=== PATIENT | male | born 1945 | race Caucasian/White ===

== ENCOUNTER → 2021-02-02 14:06 | Outpatient (CLI) | payer MEDICARE ==
[2021-02-02 14:16] LABS: BASOPHILS 0.3 % (0-2); EOSINOPHILS 0.7 % (0-7); HEMATOCRIT 46.1 % (42.0-54.0); HEMOGLOBIN 14.6 g/dL (13.5-17.5); IMMATURE GRANULOCYTES 0.2 % (0-5); LYMPHOCYTE ABS# 0.88 10x3/uL (1.32-3.57); LYMPHOCYTES 10.2 % (15-50); MCH 28.9 pg (26.0-34.0); MCHC 31.7 g/dL (31.0-37.0); MCV 91.1 fL (80.0-100.0); MONOCYTES 10.7 % (2-11); NEUTROPHIL ABS# 6.69 10x3/uL (1.78-5.38); NEUTROPHILS 77.9 % (40-80); PLATELET COUNT 233 10x3/uL (130-400); RBC 5.06 10x6/uL (4.20-6.10); RDW 13.1 % (11.5-14.5); WBC 8.6 10x3/uL (4.8-10.8)
[2021-02-02 14:24] LABS: BILIRUBIN NEGATIVE (NEGATIVE); CALC OSMOLALITY 276 mosm/kg (275-300); CARBON DIOXIDE 30.8 mmol/L (21.0-32.0); CHLORIDE - SERUM 99 mmol/L (98-107); CREATININE - SERUM 0.9 mg/dL (0.6-1.3); GLUCOSE 92 mg/dL (74-106); KETONE NEGATIVE (NEGATIVE); NITRITE NEGATIVE (NEGATIVE); POTASSIUM - SERUM 4.5 mmol/L (3.5-5.1); SODIUM 138 mmol/L (136-145); UREA NITROGEN 16 mg/dL (7-18); UROBILINOGEN NORMAL mg/dL (< 2); WHITE CELLS - URINE 0-5 HPF (0-1); eGFR NON AFRICAN AMERICAN 87 mL/min (90-120)
[2021-02-02 14:25] LABS: AMORPHOUS SEDIMENT <1+ LPF (NONE SEEN); BACTERIA FEW HPF (NONE SEEN)
== END | disposition home or self-care (01) ==
LOC: D.LABREF 14:06
PROVIDERS: ATTEND Family Medicine
DX: N39.0 Urinary tract infection, site not specified (principal); J44.1 Chronic obstructive pulmonary disease with (acute) exacerbation

== ENCOUNTER → 2021-02-07 16:26 | Outpatient (CLI) | payer MEDICARE ==
[2021-02-07 16:43] LABS: BASOPHILS 0.1 % (0-2); EOSINOPHILS 0.2 % (0-7); HEMATOCRIT 47.3 % (42.0-54.0); HEMOGLOBIN 14.9 g/dL (13.5-17.5); IMMATURE GRANULOCYTES 0.7 % (0-5); LYMPHOCYTE ABS# 0.64 10x3/uL (1.32-3.57); LYMPHOCYTES 5.1 % (15-50); MCH 28.7 pg (26.0-34.0); MCHC 31.5 g/dL (31.0-37.0); MEAN PLATELET VOLUME 10.3 fL (7.4-10.4); MONOCYTES 4.2 % (2-11); NEUTROPHIL ABS# 11.27 10x3/uL (1.78-5.38); NEUTROPHILS 89.7 % (40-80); PLATELET COUNT 212 10x3/uL (130-400); RDW 13.7 % (11.5-14.5); WBC 12.6 10x3/uL (4.8-10.8)
[2021-02-07 16:57] LABS: ALBUMIN 3.2 g/dL (3.4-5.0); ANION GAP 17.1 mmol/L (8-16); BILIRUBIN - TOTAL 0.53 mg/dL (0.2-1.3); CALCIUM 8.6 mg/dL (8.5-10.1); CARBON DIOXIDE 26.5 mmol/L (21.0-32.0); CREATININE - SERUM 1.4 mg/dL (0.6-1.3); POTASSIUM - SERUM 3.6 mmol/L (3.5-5.1); PROTEIN - SERUM 6.4 g/dL (6.4-8.2)
[2021-02-07 17:08] LABS: BILIRUBIN NEGATIVE (NEGATIVE); KETONE MODERATE mg/dL (NEGATIVE); NITRITE NEGATIVE (NEGATIVE); UROBILINOGEN NORMAL mg/dL (< 2)
[2021-02-07 17:10] LABS: BACTERIA FEW HPF (NONE SEEN)
== END | disposition home or self-care (01) ==
LOC: D.LABREF 16:26
PROVIDERS: ATTEND Family Medicine
DX: R41.0 Disorientation, unspecified (principal)

== ENCOUNTER → 2021-03-14 20:39 | Outpatient (CLI) | payer MEDICARE ==
[2021-03-14 21:33] LABS: BILIRUBIN NEGATIVE (NEGATIVE); KETONE NEGATIVE (NEGATIVE); NITRITE POSITIVE (NEGATIVE); UROBILINOGEN NORMAL mg/dL (< 2); WHITE CELLS - URINE >50 HPF (0-1)
[2021-03-14 21:34] LABS: BACTERIA MANY HPF (NONE SEEN)
== END | disposition home or self-care (01) ==
LOC: D.LABREF 20:39
PROVIDERS: ATTEND Family Medicine
DX: N32.0 Bladder-neck obstruction (principal); N40.0 Benign prostatic hyperplasia without lower urinary tract symptoms; N13.9 Obstructive and reflux uropathy, unspecified

== ENCOUNTER → 2021-03-27 17:43 | Outpatient (CLI) | payer MEDICARE ==
[2021-03-27 18:44] LABS: BILIRUBIN NEGATIVE (NEGATIVE); KETONE NEGATIVE (NEGATIVE); NITRITE NEGATIVE (NEGATIVE); UROBILINOGEN NORMAL mg/dL (< 2)
[2021-03-27 18:45] LABS: BACTERIA MANY HPF (NONE SEEN); WHITE CELLS - URINE >50 HPF (0-1)
== END | disposition home or self-care (01) ==
LOC: D.LABREF 17:43
PROVIDERS: ATTEND Family Medicine
DX: N32.0 Bladder-neck obstruction (principal); N40.0 Benign prostatic hyperplasia without lower urinary tract symptoms; N13.9 Obstructive and reflux uropathy, unspecified

== ENCOUNTER → 2021-03-28 18:50 | Outpatient (CLI) | payer MEDICARE ==
[2021-03-28 19:29] LABS: HEMATOCRIT 40.1 % (42.0-54.0); HEMOGLOBIN 12.9 g/dL (13.5-17.5); LYMPHOCYTE ABS# 1.44 10x3/uL (1.32-3.57); MCH 29.3 pg (26.0-34.0); MCHC 32.2 g/dL (31.0-37.0); MCV 91.1 fL (80.0-100.0); NEUTROPHIL ABS# 9.17 10x3/uL (1.78-5.38); RDW 14.2 % (11.5-14.5)
[2021-03-28 19:30] LABS: PLATELET COUNT 142 10x3/uL (130-400)
[2021-03-28 19:31] LABS: INR 1.17 (0.85-1.17); PROTIME 13.8 SECONDS (11.6-15.0)
[2021-03-28 19:55] LABS: EOSINOPHILS 4 % (0-7); LYMPHOCYTES 13 % (15-50); MONOCYTES 3 % (2-11); NEUTROPHILS 80 % (40-80)
[2021-03-28 19:56] LABS: PLATELET ESTIMATE NORMAL; PLATELET MORPHOLOGY PLT CLUMPS PRESENT
== END | disposition home or self-care (01) ==
LOC: D.LABREF 18:50
PROVIDERS: ATTEND Family Medicine
DX: N32.0 Bladder-neck obstruction (principal); N40.0 Benign prostatic hyperplasia without lower urinary tract symptoms; N13.9 Obstructive and reflux uropathy, unspecified

== ENCOUNTER → 2021-03-29 19:48 | Outpatient (CLI) | payer MEDICARE ==
[2021-03-29 21:36] LABS: ALBUMIN 2.9 g/dL (3.4-5.0); ALKALINE PHOSPHATASE 86 U/L (30-120); ALT (SGPT) 24 U/L (10-68); BILIRUBIN - TOTAL 0.22 mg/dL (0.2-1.3); CALC OSMOLALITY 289 mosm/kg (275-300); CALCIUM 8.7 mg/dL (8.5-10.1); CHLORIDE - SERUM 103 mmol/L (98-107); CREATININE - SERUM 0.8 mg/dL (0.6-1.3); GLUCOSE 122 mg/dL (74-106); PROTEIN - SERUM 6.7 g/dL (6.4-8.2); SODIUM 142 mmol/L (136-145); THYROID STIMULATING HORMONE 2.04 uIU/mL (0.36-3.74); UREA NITROGEN 30 mg/dL (7-18); eGFR NON AFRICAN AMERICAN > 90 mL/min (90-120)
[2021-03-30 01:01] LABS: INR 1.1 (0.85-1.17)
[2021-03-30 01:02] LABS: PROTIME 12.1 SECONDS (11.6-15.0)
== END | disposition home or self-care (01) ==
LOC: D.LABREF 19:48
PROVIDERS: ATTEND Family Medicine
DX: D50.9 Iron deficiency anemia, unspecified (principal); Z87.11 Personal history of peptic ulcer disease

== ENCOUNTER → 2021-04-25 22:19 | Outpatient (CLI) | payer MEDICARE ==
[2021-04-26 00:13] LABS: BILIRUBIN NEGATIVE (NEGATIVE); KETONE NEGATIVE mg/dL (< 1+); NITRITE POSITIVE (NEGATIVE); UROBILINOGEN NORMAL mg/dL (< 2)
[2021-04-26 00:20] LABS: BACTERIA MODERATE HPF (<MOD); SQUAMOUS EPITHELIAL 0-5 HPF (0-4)
== END | disposition home or self-care (01) ==
LOC: D.LABREF 22:19
DX: N39.0 Urinary tract infection, site not specified (principal)

== ENCOUNTER → 2021-04-27 19:52 | Outpatient (CLI) | payer MEDICARE ==
[2021-04-30 11:23] LABS: AMORPHOUS SEDIMENT FEW LPF (<FEW); BACTERIA MANY HPF (<MOD); BILIRUBIN NEGATIVE (NEGATIVE); KETONE NEGATIVE mg/dL (< 1+); NITRITE POSITIVE (NEGATIVE); UROBILINOGEN NORMAL mg/dL (< 2); WHITE CELLS - URINE >182 HPF (0-1)
== END | disposition home or self-care (01) ==
LOC: D.LABREF 19:52
PROVIDERS: ATTEND Family Medicine
DX: N17.9 Acute kidney failure, unspecified (principal)